=== PATIENT | female | born 1975 | race Caucasian/White ===

== ENCOUNTER → 2022-06-21 13:49 | Outpatient (CLI) | payer MEDICAID, SELFPAY ==
--- NOTE | 2022-06-21 14:02 | XR_ITS ---
FINAL REPORT CLINICAL HISTORY: foot pain COMPARISON: none FINDINGS: AP, oblique and lateral views of the left foot were obtained. There is no prior exam for comparison. There is no acute fracture or dislocation. The joint spaces are preserved. Soft tissues are normal. IMPRESSION: No acute osseous abnormality of the left foot. Reviewed, Interpreted and Dictated by Gauri Velázquez MD Transcribed by Chelsi Rivera Authenticated and [facility]
== END ==
PROVIDERS: Visit Provider Podiatrist
DX: M79.672 Pain in left foot (principal)
CPT/HCPCS: 73630

== ENCOUNTER → 2022-06-21 16:13 | Outpatient (CLI) | payer MEDICAID, SELFPAY ==
--- NOTE | 2022-06-21 16:19 | XR_ITS ---
FINAL REPORT CLINICAL HISTORY: pre-op testing -- cough FINDINGS: PA and lateral views of the chest are obtained. There is no prior exam for comparison. The cardiac and mediastinal silhouettes are within normal limits. The lungs are clear. There is no pleural effusion, pneumothorax, or acute osseous abnormality. IMPRESSION: No radiographic evidence of acute cardiac or pulmonary disease. Authenticated and [facility]
--- NOTE | 2022-06-21 17:04 | ECG_ITS ---
APPROVED REPORT Exam: Resting ECG HR:81 bpm ECG Measurements Heart Rate 81 AXES NC 117 P -3 QRSd 85 QRS 31 QT 376 T 231 QTc 413 Conclusion SINUS RHYTHM WITH SHORT NC INTERVAL ST DEVIATION AND MARKED T-WAVE ABNORMALITY, CONSIDER ANTEROLATERAL ISCHEMIA [-0.5+ mV T-WAVE IN I/aVL/V3-V6] ST DEVIATION AND MODERATE T-WAVE ABNORMALITY, CONSIDER INFERIOR ISCHEMIA [-0.1+ mV T-WAVE IN II/aVF] ABNORMAL ECG UNCONFIRMED REPORT Electronically signed by : Zaire Hyman MD 06/22/2022 17:06:27
[2022-06-21 17:21] LABS: Basophils # 0.1 K/mm3 (0-0.2); Basophils % 0.8 % (0.1-2.0); Eosinophils # 0.1 K/mm3 (0.0-0.4); Eosinophils % 1.2 % (0.1-12.0); Hematocrit 45.2 % (37.0-47.0); Hemoglobin 14.6 g/dL (12.2-16.2); Lymphocytes # 3.3 K/mm3 (0.7-4.5); Lymphocytes % 27.9 % (10-50); Mean Corpuscular HGB Conc 32.2 g/dL (31.8-35.4); Mean Corpuscular Hemoglobin 30.6 pg (27.0-31.2); Mean Corpuscular Volume 94.9 fl (81-99); Monocytes # 0.6 K/mm3 (0.1-1.0); Monocytes % 4.9 % (1.7-9.3); Neutrophils # 7.7 K/mm3 (1.8-7.8); Neutrophils % 65.2 % (37.0-80.0); Platelet Count 306 K/mm3 (142-424); Red Blood Count 4.76 M/mm3 (4.20-5.40); Red Cell Distribution Width 14.3 % (11.5-17.5); White Blood Count 11.8 K/mm3 (4.8-10.8)
[2022-06-21 17:45] LABS: Alanine Aminotransferase 32 U/L (12-78); Albumin Level 4.4 g/dl (3.5-5.0); Albumin/Globulin Ratio 1.6 (1.1-1.8); Alkaline Phosphatase 85 U/L (38-126); Anion Gap 8.9 mEq/L (5-15); Aspartate Amino Transferase 27 U/L (14-36); Bilirubin,Total 0.4 mg/dl (0.2-1.3); Blood Urea Nitrogen 13 mg/dl (7-17); Calcium 9.3 mg/dl (8.4-10.2); Carbon Dioxide 28 mmol/L (22.0-30.0); Chloride 105 mmol/L (98-107); Estimated Glomerular Filt Rate 67 ml/min (>60); GFR (African American) 82 ML/MIN (>60); Globulin 2.7 g/dL (1.3-3.2); Glucose 87 mg/dl (74-100); Potassium 3.9 mmoL/L (3.5-5.1); Sodium 138 mmol/L (136-145); Total Protein,Serum 7.1 g/dl (6.3-8.2)
[2022-07-06 08:26] LABS: Nicotine 10.3
[2022-07-06 08:29] LABS: Cotinine 89.4
== END ==
PROVIDERS: PCP Nurse Practitioner Psychiatric/Mental Health; Visit Provider Podiatrist
DX: Z01.818 Encounter for other preprocedural examination (principal); M77.32 Calcaneal spur, left foot
CPT/HCPCS: 36415; 71046; 80053; 80323; 85025; 93005

== ENCOUNTER 2022-07-07 09:03 | Day surgery (SDC) | payer MEDICAID, SELFPAY ==
[2022-07-07] VITALS (10 sets, daily range): BP systolic 117–153; BP diastolic 63–84; PULSE 76–102; RESP 16–18; TEMP 36.4–36.8; O2SAT 95–98; BMI 35.4
[2022-07-07 10:45] LABS: HCG Qualitative, Serum Negative (Negative)
--- NOTE | 2022-07-07 11:57 | P.PN_ITS ---
[facility] Disclaimer: The information contained in this section may have been updated after the patient was seen, as this information can be updated by other users. Medical History (Updated 07/04/22 @ 13:42 by Daniela Holt RN) Bipolar 1 disorder Depression Endometriosis Fibromyalgia Hemorrhoids Hiatal hernia History of COVID-19 History of gastroesophageal reflux (GERD) Hyperlipidemia Kidney stone Left foot pain Pneumonia Surgical History (Updated 07/07/22 @ 09:41 by Chelsi Sanders RN) History of back surgery History of cholecystectomy History of tubal ligation Family History (Updated 07/07/22 @ 09:41 by Chelsi Sanders RN) Father Liver cancer Other No significant family history Social History Smoking Status: Current every day smoker tobacco type: cigarettes packs per day: 1 alcohol intake: never substance use type: denies use current occupational status: unemployed and disabled Travel in the last 8 weeks: None [facility] Anesthesia Checklist Patient Identification Patient Identification: Arm Band Structural Data Admitted From: Home Planned Operative Procedure/s: Left Plantar Fascia Release Consent for Planned Operative Procedure(s) Verified: Yes Verified Documents: Surgical Consent and History and Physical NPO Status Verified Time NPO: 00:00 Additional verifications Anesthesia Reactions: No Hx Blood Transfusions: No Blood Transfusion Reaction: No Airway Assessment C-Spine Mobility Assessed: Yes TMJ Mobility Assessed: Yes Dentition: Edentulous Neurological Assessment Level of Consciousness: Awake and Alert Anesthesia Plan Anesthesia Risk discussed: Yes Anesthesia Plan: Verified ASA Class: II Anesthesia Type: General w/block (Left Popliteal/Adductor Canal Block. Risks/benefits explained. Pt verbalized understanding)
--- NOTE | 2022-07-07 11:58 | EXP.ANES.I ---
[facility] Anesthesia Record Part I Anesthesia Record I Intake, IV Amount: 1,000 Estimated blood loss (mL): 5 Urine output (mL): 0 Blood Products used (#): none Blood Pressure: 121/67 SaO2: 98 Pulse Rate: 102 Respiratory Rate: 16 Temperature: 97.6 F Patient is:: Drowsy and Stable Stable to PACU at:: 11:55
--- NOTE | 2022-07-07 12:13 | P.OP_ITS ---
Date of procedure: 07/07/22 Pre-op Diagnosis:: Painful Left sided Plantar fasciitis Post-op Diagnosis:: Same Procedure performed:: Plantar fascia release Left side Surgeon:: Macario Villegas DPM Anesthesia: GETA and other (popliteal block left side) Estimated blood loss (mL): 1 Operative findings:: Taut plantar fascia; had partially torn prior to surgery Operative note:: Patient has painful plantar fascia of effected Left side. Conservative measures have failed to resolve pain and symptoms and patient has informed consent with questions answered and wants to proceed with planned surgery for fascia release of effected side. Initialed the effected Left side and reviewed and examined patient. Anesthesia department prepares patient; performed popliteal nerve block in pre- op holding. Patient is wheeled into operating room and left on gurney in supine position. Sedation is achieved. Foot is scrubbed, prepped, and draped in usual aseptic manner. Time out is performed in the room and all present confirm to patient and intended plan of care. Attention directed to the effected foot. Eschmark bandage used to exsanguinate the left foot and tourniquet inflated above the malleoli to 250mmHg. Longitudinal incision placed on the medial heel in line with the plantar fascia origin. Bleeders cauterized with bovee. Deepened incision through subcutaneous tissues and noted plantar fascia band. Freed from the intrinsic musculature above and also from the plantar fat. Scissors used to release the fascia and remove a 1cm strip of tissue, in pieces. Palpated heel bone; file used to smooth bony spurring of the inferior plantar heel. Irrigated with saline. Sutured closed with 3-0 Vicryl and 2-0 Nylon. Released tourniquet and prompt hyperemic response was noted to all toes of the foot. Dressed with Xeroform gauze (Adaptic if allergic to betadine), Gauze, ABD Pad, Kerlix. Applied a well-padded posterior splint, secured with outer elastic bandage. Keep dressings clean and dry and intact until followup appointment. Patient tolerated procedure and anesthesia well. Wheeled to PACU; then plan to Outpatient then to home. NWB effected side for 4 weeks; or as directed by me during the post operative period. Tourniquet time (min): 29 Condition: stable Disposition: PACU Specimens:: Left side plantar fascia Complications:: negative
--- NOTE | 2022-07-07 13:03 | EXP.ANES.II ---
[facility] Anesthesia Record Part II Anesthesia Record Part II Discharge Time: 12:25 Destination: Surgical Day Care (OP Surgery) PACU nurse assessment reviewed?: Yes Patient Condition:: Good Anesthesia Complications:: None Swallowing reflex intact?: Yes Cyanosis?: No Blood Pressure: 129/63 Pulse Rate: 97 Temperature: 97.6 F Mental Status: Alert & Oriented Pain level:: 0 Nausea and/or vomitting:: None Intake, IV Amount: 0
== END 2022-07-07 12:56 | disposition home or self-care (01) ==
PROVIDERS: PCP Nurse Practitioner Psychiatric/Mental Health; Visit Provider Podiatrist
PROC: (CPT 28060; principal; 2022-07-07 10:30)
DX: M77.32 Calcaneal spur, left foot (principal); Z79.899 Other long term (current) drug therapy; E03.9 Hypothyroidism, unspecified; F17.210 Nicotine dependence, cigarettes, uncomplicated; M72.2 Plantar fascial fibromatosis
CPT/HCPCS: 28060; 84703; 96374; J2405

== ENCOUNTER → 2022-08-30 15:25 | Outpatient (CLI) | payer MEDICAID, SELFPAY ==
--- NOTE | 2022-08-30 15:30 | XR_ITS ---
FINAL REPORT CLINICAL HISTORY: ankle pain FINDINGS: Right ankle Three views were obtained. There is no acute fracture or dislocation. The joint spaces appear normal. No soft tissue abnormality is identified. IMPRESSION: No acute process. Reviewed, Interpreted and Dictated by Maggie Mcgraw MD Transcribed by Elsa Knox Authenticated and [facility]
--- NOTE | 2022-08-30 15:30 | XR_ITS ---
FINAL REPORT CLINICAL HISTORY: foot pain FINDINGS: Right foot Three views were obtained. There is no acute fracture or dislocation. There are minimal degenerative changes of the 1st metatarsophalangeal joint. Mild plantar calcaneal spurring is noted. No soft tissue abnormality is identified. IMPRESSION: No acute process. Reviewed, Interpreted and Dictated by Maggie Mcgraw MD Transcribed by Elsa Knox Authenticated and . [facility]
== END ==
PROVIDERS: Visit Provider Podiatrist
DX: M79.671 Pain in right foot (principal); M25.571 Pain in right ankle and joints of right foot
CPT/HCPCS: 73610; 73630